=== PATIENT | male | born 1980 | race Caucasian/White ===

== ENCOUNTER 2017-03-03 16:00 | Inpatient (IN) | payer OTHER ==
--- NOTE | ~2017-03-03 | DS ---
Unit #: [id number] #: [id number] Patient: MARGARITA MEDEIROS [id number] [facility] [address] [place] [address] [id number] MR#: [id number] NAME: MARGARITA MEDEIROS ROOM: [facility] Age: 36 Sex: M Admission Date: 03/04/2017 : 1980 Discharge Date: 03/07/2017 Attending Physician: Brando Pena M.D. Primary Care Physician: Brando Trujillo M.D. DISCHARGE SUMMARY REASON FOR ADMISSION Mr. Medeiros is a 36-year-old man who reports that he has increasing mood lability, and becomes "homicidal toward everybody I see." He also reports a history of incarceration for homicide and he is temporarily homeless in the [place], [place] area. [facility]. DIAGNOSTIC STUDIES LABORATORY RESULTS: Please see hospital chart. HOSPITAL COURSE Margarita was admitted and placed on suicide precautions. His Zyprexa was increased to a higher dose at bedtime and Topamax was added for control of mood lability. He began asking for discharge fairly soon after admission, and denied active homicidal ideation, although, he did admit that this was an impulsive problem that did not frequently occur. On the date of discharge, he was once again able to contract for safety. He noted that he was homeless in the community and resources were provided by the manager social responsibility. DISCHARGE DIAGNOSES AXIS I: Schizophrenia, undifferentiated type; impulse control disorder, not otherwise specified. AXIS II: No diagnosis. AXIS III: None. AXIS IV: AXIS V: DISCHARGE INSTRUCTIONS Follow up with [facility] in [place], [place]. DISCHARGE MEDICATIONS Zyprexa 15 mg at bedtime for psychosis, Topamax 50 mg at bedtime for mood stability, to be titrated in the outpatient setting. CONDITION AT DISCHARGE Fair. PROGNOSIS Fair to good. DIET AND ACTIVITY Unit #: [id number] #: [id number] Patient: MARGARITA MEDEIROS Ad brea. Dictated by... Brando Pena M.D. H/evinl TD: 03/08/2017 13:04 JOB #: [id number] DISCHARGE SUMMARY Page 1 of 1 X Brando Pena MD DISCHARGE SUMMARY
--- NOTE | ~2017-03-03 | PA ---
Unit #: [id number] #: [id number] Patient: MARGARITA MEDEIROS [id number] [facility] [address] [place] [address] [id number] I MR#: [id number] NAME: MARGARITA MEDEIROS ROOM: P254 Age: 36 Sex: M Admission Date: 03/04/2017 : 1980 Date of Assessment: 03/05/2017 Attending Physician: Brando Pena M.D. Admitting Physician: Brando Pena M.D. Primary Care Physician: Brando Trujillo M.D. PSYCHIATRIC ASSESSMENT DATE OF SERVICE 03/05/2017. INFORMANTS The patient, reliable; [facility], reliable. CHIEF COMPLAINT "I want to kill people." HISTORY OF PRESENT ILLNESS Margarita Medeiros is a 36-year-old man, who reports that his "immediate thought" is to kill people when they look at him. He reported this has been going on his whole life and that in fact he was incarcerated for many years after acting one of these impulses and causing the of another person. The patient also states he overdosed on heroin 5 months ago in a suicide attempt. He was unable to contract for safety against harm for himself or others and was admitted for stabilization. PAST PSYCHIATRIC HISTORY The patient reports a history of taking olanzapine 15 mg at bedtime. His outpatient diagnosis is unclear, but appears to be undifferentiated schizophrenia versus a bipolar disorder. He reports some compliance with his medications. FAMILY PSYCHIATRIC HISTORY The patient reports that his mom takes "psych medications," but he is unclear with her diagnosis. SOCIAL HISTORY The patient refused to discuss the history of abuse or neglect. He states he was in longterm for 18 years for a charge of murder and was released in 02/2016. He could not describe his educational achievement and is currently unemployed and living alone. PAST MEDICAL HISTORY The patient denied any medical conditions, but reports he takes allergy medicines. MEDICATIONS Flonase, Singulair, and Claritin. ALLERGIES No known medication allergies. Unit #: [id number] #: [id number] Patient: MARGARITA MEDEIROS SUBSTANCE USE HISTORY The patient reported overdose on heroin several months ago. He says that he is not using now, but does use marijuana. MENTAL STATUS EXAMINATION The patient presented as a mildly disheveled man, who appeared older than his stated age. He was generally cooperative with the examination. His speech was spontaneous, concrete, but easily understood. Musculoskeletal examination was calm. His mood was irritable with a decreased range of affect. He was alert and fully oriented. His memory and concentration were fair and his thought processes appeared logical, but concrete. He reported occasional auditory hallucinations. He denied suicidal ideation at this time, but did report global homicidal ideation toward "anybody who looks at me." Insight and judgment were only fair. Fund of knowledge and abstraction were impaired. ASSETS AND LIABILITIES The patient is in general good health and presented requesting treatment. Liabilities include frequent nonspecific and unpredictable homicidal ideation. ADMITTING DIAGNOSES AXIS I: Intermittent explosive disorder, F63.81; possible schizophrenia, undifferentiated type. 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 AXIS III: Seasonal allergies. AXIS IV: AXIS V: PSYCHIATRIC PLAN The patient was admitted and placed on suicide precautions. We will increase the Zyprexa to 20 mg at bedtime and add Topamax beginning at 50 mg daily in an attempt to assist with mood lability. He will enroll in psychotherapy groups and activities. Physical examination and laboratory studies will be ordered and reviewed. TREATMENT GOALS Resolution of homicidal ideation, stabilization of mood, improvement in insight, and improvement in coping skills. DISCHARGE PLANNING Follow up with [facility]. ESTIMATED LENGTH OF STAY 5 days. Dictated by... Brando Pena M.D. MAKAYLA/fredi TD: 03/06/2017 02:15 JOB #: [id number] Unit #: [id number] #: [id number] Patient: MARGARITA MEDEIROS PSYCHIATRIC ASSESSMENT Page 1 of 1 X Brando Pena MD X PSYCHIATRIC ASSESSMENT
--- NOTE | ~2017-03-03 | PN ---
Unit #: [id number] #: [id number] Patient: MARGARITA BLOOM [id number] [facility] [address] [place] [address] [id number] I MR#: [id number] NAME: MARGARITA BLOOM ROOM: P254 Age: 36 Sex: M Admission Date: 03/04/2017 : 1980 Attending Physician: Brando Pena M.D. Admitting Physician: Brando Pena M.D. Primary Care Physician: Svetlana Pace PROGRESS NOTES DATE 03/06/2017 DISCUSSION Mr. Bloom requested AMA discharge last night but this was declined and a 72 hour hold was placed. This morning he explains that he was upset after a phone call with his mother. He continues to be compliant with medications and denies any adverse side effects from his increased dose of Zyprexa. He is alert and fully oriented and has decreased preoccupation with homicidal ideation. ASSESSMENT 1. Schizophrenia, undifferentiated type. 2. Impulse control disorder. PLAN Continue with current medications, anticipating discharge soon. Dictated by... Svetlana Frgaa/broderick TD: 03/07/2017 11:31 JOB #: [id number] [facility] PROGRESS NOTES Page 1 of 1 X Brando Pena MD PROGRESS NOTE
--- NOTE | ~2017-03-03 | HP ---
Unit #: [id number] #: [id number] Patient: MARGARITA MEDEIROS [id number] [facility] [address] [place] [address] [id number] MR#: [id number] NAME: MARGARITA MEDEIROS ROOM: P254 Age: 36 Sex: M Admission Date: 03/04/2017 : 1980 Attending Physician: Brando Pena M.D. Admitting Physician: Brando Pena M.D. Primary Care Physician: Brando Trujillo M.D. HISTORY AND PHYSICAL HISTORY OF PRESENT ILLNESS Margarita is a 36 year old admitted to [address] [place] [address] with depression and reporting homicidal ideations. PAST MEDICAL HISTORY Nothing significant PAST SURGICAL HISTORY Appendectomy ALLERGIES No known drug allergies. SOCIAL HISTORY He denies cigarettes and alcohol admits to a past history of opioid abuse. FAMILY HISTORY Medically noncontributory. REVIEW OF SYSTEMS CONSTITUTIONAL: No fever or chills. HEENT: Denies any sore throat, ear pain or runny nose. CARDIOVASCULAR: Denies chest pain, irregular heart rhythm or palpitations. CHEST: Denies shortness of breath or cough. No hemoptysis. GASTROINTESTINAL: Denies nausea, vomiting, diarrhea or chronic constipation. ENDOCRINE: Denies history of increased thirst or urination. No recent significant weight loss or gain. GENITOURINARY: Denies dysuria, frequency, or hematuria. SKIN: Denies any rashes. HEMATOLOGIC: Denies history of increased bleeding or bruising. MUSCULOSKELETAL: Denies any hot, swollen joints. No generalized muscle pain. NEUROLOGIC: Denies problems with vision or speech. No frequent, severe headaches. No numbness, tingling or weakness in any extremities. Denies loss of bladder or bowel control. CURRENT MEDICATIONS 1. Milk of Magnesia p.r.n. 2. Maalox p.r.n. 3. Tylenol p.r.n. Unit #: [id number] #: [id number] Patient: MARGARITA MEDEIROS 4. Flonase nasal spray q day 5. Nicotine patch 14 mg q day 6. Singular 10 mg q day 7. Zyprexa 15 mg day PHYSICAL EXAMINATION GENERAL: Alert, well-nourished, in no apparent distress. VITAL SIGNS: Blood pressure 136/78, heart rate 90, respirations 16, temperature 98.6. WEIGHT: 182 pounds. HEIGHT: 5'7". SKIN: Warm and dry without rash or lesion. HEENT: Normocephalic. TMs not viewed. Oral and nasal passages clear. Conjunctivae clear. Pupils equal, round and reactive to light and accommodation. Extraocular movements intact. NECK: Supple without lymphadenopathy or thyromegaly. HEART: Regular rate and rhythm without murmur. LUNGS: Clear. ABDOMEN: Soft, nontender. : Not done. EXTREMITIES: No evidence of cyanosis, clubbing or edema. Moves all extremities without focal deficit. NEUROLOGICAL: Grossly within normal limits. Cranial Nerves: II: Visual schaefer are intact. III, IV AND : Extraocular movements are intact. Pupils are equal, round and reactive to light. V: Facial sensation is grossly normal. VII: Facial movements and expression are normal. VIII: Auditory acuity grossly intact. IX, X: Uvula is midline. Phonation is normal. XI: Patient shrugs shoulders and turns head normally. XII: Tongue protrudes in the midline. Sensory and Motor Function: Sensory and motor sensation is grossly normal. Motor: moves all extremities well. Coordination: Gait is normal. Deep Tendon Reflexes: Intact. IMPRESSION Psychiatric admission RECOMMENDATIONS PSYCHIATRIC: Per psychiatrist. MEDICAL: I see no contraindications to participating in facility's activities. MEDICAL PROGNOSIS Good. MEDICAL CONDITION Stable. Dictated by... Destiny Pepper P.A.-C. for Svetlana Cancino/matty Unit #: [id number] #: [id number] Patient: MARGARITA MEDEIROS TD: 03/04/2017 23:24 JOB #: [id number] HISTORY AND PHYSICAL Page 1 of 1 X Destiny Pepper HISTORY AND PHYSICAL
[2017-03-05 12:42] LABS: ALBUMIN SERUM 3.7 g/dL (3.5-5.0); BILIRUBIN,TOTAL 0.8 mg/dL (0.2-2.0); BUN/CREATININE RATIO 13.75; CALCIUM SERUM 9.6 mg/dL (8.4-10.2); CREATININE SERUM 0.8 mg/dL (0.6-1.4); GLOM FILT RATE Estimated 113.4 mL/min (>60); POTASSIUM 4.8 mmol/L (3.5-5.1); PROTEIN TOTAL SERUM 6.1 g/dL (6.0-8.3)
[2017-03-05 16:14] LABS: BASOPHIL# 0.1 X10e3 (0-0.3); BASOPHIL% 0.9 % (0-2.5); EOSINOPHIL# 0.2 X10e3 (0-0.7); EOSINOPHIL% 2.7 % (0.0-7.0); HEMATOCRIT 46.3 % (38.0-50.0); HEMOGLOBIN 15.2 gm/dL (13.0-16.0); LYMPHOCYTE# 1.6 X10e3 (1.0-3.5); MEAN CELL VOLUME 87.6 FL (83-96); MEAN CORPUSCULAR HEMOGLOBIN 28.8 PG (28-34); MEAN CORPUSCULAR HGB CONC 32.9 g/dL (30-36); MEAN PLATELET VOLUME 8.8 FL (6.5-11.5); MONOCYTE# 0.6 X10e3 (0-1.0); MONOCYTE% 7.7 % (3.0-12.0); NEUTROPHIL% 66.7 % (40-75); PLATELET COUNT 261 X10e3 (140-420); RED BLOOD COUNT 5.29 X10e (3.90-5.60); RED CELL DISTRIBUTION WIDTH 14.1 % (11.0-15.5); WHITE BLOOD COUNT 7.4 X10e3 (4.0-10.5)
[2017-03-05 16:15] LABS: DIFF IND NO
[2017-03-07 11:32] LABS: AMPHETAMINE NEG (NEG); BARBITURATES NEG (NEG); BENZODIAZEPINES NEG (NEG); COCAINE NEG (NEG); MARIJUANA POS (NEG); OPIATES NEG (NEG); TRICYCLIC ANTIDEPRESSANTS NEG (NEG); U METHADONE NEG (NEG)
== END 2017-03-07 11:45 | disposition home or self-care (01) | DRG 883 ==
LOC: P2L 03-04 15:05
PROVIDERS: Psychiatry & Neurology Psychiatry
DX: F63.81 Intermittent explosive disorder (principal); F20.89 Other schizophrenia; Z91.5 Personal history of self-harm; R45.850 Homicidal ideations; J30.2 Other seasonal allergic rhinitis
CPT/HCPCS: 80053; 80307; 85025